=== PATIENT | male | born 2000 | race Caucasian/White ===

== ENCOUNTER 2025-03-17 14:31 | Outpatient (CLI) | payer MEDICAID ==
--- NOTE | 2025-03-17 15:36 | RADIOLOGY REPORT ---
ULTRASOUND CHEST SOFT TISSUE: REASON FOR EXAM: POSTPROC SEROMA OF SKIN, SUBCU FOLLOWING OTHER PROCEDURE. 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 TECHNIQUE: Real-time sector scans in the transverse and longitudinal planes were obtained in the area of concern at the anterior chest. FINDINGS: In the left pectoral region, there is normal appearance of the subcutaneous fat and pectoralis major muscle overlying the ribs. No free fluid or fluid collection is identified in the left pectoral region. In the right pectoral region, there is normal appearance of the subcutaneous fat and pectoralis major muscle overlying the ribs. No free fluid or fluid collection is identified in the right pectoral region. IMPRESSION: No free fluid or fluid collection is identified in the right or left pectoral region.
== END 2025-03-17 23:59 | disposition home or self-care (01) ==
LOC: RAD 14:31
PROVIDERS: ATTEND Surgery Plastic and Reconstructive Surgery
DX: L76.34 Postprocedural seroma of skin and subcutaneous tissue following other procedure (principal)
CPT/HCPCS: 76881

== ENCOUNTER 2025-04-01 20:17 | Emergency (ER) | payer MEDICAID ==
[~2025-04-01] VITALS: Ht 177.8 cm; Wt 110.0 kg
[2025-04-01 20:50] LABS: MEAN PLATELET VOLUME 8.0 FL (7.4-10.4); RED CELL DISTRIBUTION WIDTH 14.7 % (11.5-14.5)
[2025-04-01 21:06] LABS: CREATININE 1.34 MG/DL (0.60-1.10); TOTAL CARBON DIOXIDE 23.5 MMOL/L (24-32); eCRCL 89 ML/MIN; eGFR 66 ML/MIN
--- NOTE | 2025-04-01 22:58 | Physician Documentation ---
History of Present Illness Chief Complaint: Post-operative complication Stated Complaint: POST OP COMPLICATIONS Time Seen by MD: 21:14 Medication Reconciliation Allergies: Coded Allergies: No Known Allergies (Unverified , 04/01/25) Review of Systems ROS As stated above in the HPI, otherwise all systems are reviewed and negative. Physical Exam Vital Signs: Temperature: 98.6, Source: Temporal, Heart Rate: 84, Respiratory Rate: 15, BP: 107/83, Pulse Oximetry: 97, Weight: 110.000 Physical Exam VITALS: Reviewed and as above. GENERAL: Alert, no apparent distress. HEENT: Normocephalic, atraumatic, PERRL, EOMI, dry mucosa, no erythema RESPIRATORY: Lungs clear, normal breath sounds, no respiratory distress. CHEST: No accessory muscle use, no retractions CV: Regular rate, rhythm, no edema, no murmur, No: JVD GI: Soft, mild tenderness with palpation to the lower abdomen bilaterally, bowels sounds present, no rebound, guarding, or rigidity BACK: No CVA tenderness, or swelling MUSCULOSKELETAL No deformities, no edema SKIN: Warm and dry, no rash NEURO: Oriented x4, No motor or sensory deficit PSYCH: Normal mood and affect, no agitation Progress Results/Orders Results/Orders Vital Signs 04/01/25 20:28 Temp 98.6 Pulse 84 Resp 15 B/P (MAP) 107/83 Pulse Ox 97 Laboratory Tests Test 04/01/25 20:44 White Blood Count 13.4 H Red Blood Count 4.53 L Hemoglobin 11.8 L Hematocrit 35.4 L Mean Corpuscular Volume 78.0 Mean Corpuscular Hemoglobin 25.9 L Mean Corpuscular Hemoglobin Concent 33.3 Red Cell Distribution Width 14.7 H Platelet Count 388 Mean Platelet Volume 8.0 Neutrophils (%) (Auto) 91.1 H Lymphocytes (%) (Auto) 6.1 L Monocytes (%) (Auto) 2.5 Eosinophils (%) (Auto) 0 Basophils (%) (Auto) 0.3 Neutrophils # (Auto) 12.2 H Lymphocytes # (Auto) 0.8 L Monocytes # (Auto) 0.3 Eosinophils # (Auto) 0.0 Basophils # (Auto) 0.0 CBC Comment Sodium Level 137 Potassium Level 4.2 Chloride Level 101 Carbon Dioxide Level 23.5 L Anion Gap 13 Blood Urea Nitrogen 15 Creatinine 1.34 H Estimated GFR/1.73 m2 66 BUN/Creatinine Ratio 11.2 Glucose Level 156 H Calcium Level 7.9 L Total Bilirubin 0.6 Aspartate Amino Transf (AST/SGOT) 31 Alanine Aminotransferase (ALT/SGPT) 67 Alkaline Phosphatase 70 Total Protein 7.0 Albumin 3.7 Globulin 3.3 Albumin/Globulin Ratio 1.1 Chemistry Comments Medical Decision Making Additional information obtaine: other Findings 25-year-old female presented to the ED for evaluation of abdominal pain radiating to the right shoulder and light vaginal bleeding following outpatient hysterectomy earlier today at [facility]. Pain is currently well controlled with oxycodone prescribed postoperatively. Patient's primary concern is the amount of vaginal bleeding, but she has not saturated a single OB pad since the procedure. Assessment: Abdominal pain: Pain is consistent with post-laparoscopic hysterectomy, likely due to residual pneumoperitoneum causing referred shoulder pain, which is common and typically peaks at 24 hours post-op. No signs of peritonitis, hemodynamic instability, or acute abdomen. Vaginal bleeding: Mild, not exceeding one pad, and not clinically concerning. Post-hysterectomy bleeding is expected and usually self-limited; transfusion or intervention is rarely required unless bleeding is heavy or persistent. Vital signs: Stable. Patient appears well, non-toxic, and not in distress. Other complications: No evidence of vaginal cuff dehiscence, infection, or urinary/GI injury. No fever, urinary retention, or GI symptoms. Medical Decision-Making: Reassurance provided regarding expected post-operative symptoms, including mild vaginal bleeding and referred shoulder pain from intra-abdominal air. Pain management: Continue oxycodone as prescribed, reassess need for opioids, and transition to non-opioid analgesics as tolerated. Bleeding: No intervention required; patient educated on signs of excessive bleeding (soaking >1 pad/hour, large clots, hemodynamic symptoms) and instructed to return if these occur. Complication risk: Patient is at low risk for immediate post-op complications given normal exam and vitals. Most ED visits post-hysterectomy are for pain, GI, or complaints, but admission is uncommon in well-appearing patients. Discharge criteria met: Patient is alert, pain controlled, bleeding minimal, and no evidence of acute complication. Plan: Discharge home with instructions for routine post-hysterectomy care. Continue prescribed pain regimen, monitor for signs of infection, excessive bleeding, or dehiscence. Follow up with gynecology as scheduled or sooner if symptoms worsen. Return to ED for fever, severe pain, heavy bleeding, syncope, or signs of infection. Patient education provided regarding expected recovery course, warning signs, and medication use. All questions answered; patient comfortable with discharge plan. Differential Dx:Considerations: Other, N/A Departure Disposition: 01 HOME / SELF CARE / HOMELESS Impression: Primary Impression: Postoperative complication Additional Impression: Postoperative pain Condition: Stable Additional Instructions: You have been evaluated in the emergency department for abdominal pain and light vaginal bleeding after your outpatient hysterectomy. Your symptoms are currently mild and not concerning, but it is important to monitor your recovery closely. What to Expect: Mild abdominal pain, including pain that may radiate to your shoulder, is common after surgery. This is often due to air used during the procedure and should improve over the next few days. Light vaginal bleeding or spotting is normal after hysterectomy. You should not soak through more than one pad per hour. You may feel tired, have some trouble sleeping, or experience mild nausea. These symptoms usually improve with rest and time. Activity and Self-Care: Rest as needed, but try to walk around several times a day to help your recovery and prevent blood clots. Take pain medication as prescribed. If your pain is not controlled, contact your healthcare provider. Eat a light diet and drink plenty of fluids unless told otherwise. Keep your incision area clean and dry if you have one. Follow-Up: Schedule a follow-up appointment with your surgeon as directed, ideally within the next week. Contact your primary care provider for any ongoing concerns or questions about your recovery. When to Seek Emergency Care: Return to the emergency department right away if you experience any of the foll owing: Heavy vaginal bleeding (soaking through more than one pad per hour or passing large clots) Severe or worsening abdominal pain not relieved by medication Fever over 101F (38.3C), chills, or feeling very unwell Difficulty urinating or new pain with urination Nausea or vomiting that prevents you from keeping fluids down Redness, swelling, or drainage from your incision (if present) Shortness of breath, chest pain, or rapid heartbeat Any other symptoms that feel severe or concerning to you Questions or Concerns: If you have questions about your recovery, call your surgeons office or your primary care provider. If you are unable to reach them and your symptoms are severe, return to the emergency department. Remember: Most patients recover well after hysterectomy, but it is important to watch for signs of complications and seek help if needed. Referrals: NO PRIMARY CARE PROVIDER (PCP) Education Educated: Patient Educated regarding: diagnosis, treatment, need for follow up Signature Scribe Signature: A Attestation: Scribed for Mackenzie Ruvalcaba by CHARITO Friedman . 04/01/25 22:58 MACKENZIE RUVALCABA Apr 01, 2025 22:58
[2025-04-02 01:16] VITALS: BP 107/83; PULSE 84; RESP 15; TEMP 98.6; O2SAT 97
== END 2025-04-01 23:05 | disposition home or self-care (01) ==
LOC: ER 20:18
DX: G89.18 Other acute postprocedural pain (principal)
CPT/HCPCS: 36415; 80053; 85025; 86885; 86900; 86901; 99283